=== PATIENT | female | born 2000 | race Caucasian/White ===

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

== ENCOUNTER 2022-07-25 21:58 | Emergency (ER) | payer BC, OTHER ==
[~2022-07-25] VITALS: Ht 162.6 cm; Wt 63.5 kg
[~2022-07-25 21:58] MED LIST changes: -GADOBUTROL 7.5 MMOL/7.5 ML (GADAVIST) VIAL IV ONE; +NITR-65 PO
--- NOTE | 2022-07-25 22:42 | ED GU-Female ---
General Chief Complaint: - Reproductive Stated Complaint: RIGHT SIDE BACK PAIN Source: patient History of Present Illness Date Seen by Provider: July 25, 2022 Time Seen by Provider: 22:25 Initial Comments PT ARRIVES VIA POV FROM HOME WITH MOTHER. PT STATES THAT IMMEDIATELY PRIOR TO ARRIVAL--20 MINUTES OR LESS, SHE BEGAN HAVING LEFT FLANK PAIN, THAT THEN MOVED OVER TO RIGHT FLANK SHE WAS WITH HER BOYFRIEND AT THE TIME SHE HAS NOT TAKEN ANYTHING FOR PAIN SHE HAS BEEN DRINKING ALCOHOL TONIGHT "A COUPLE OF SHOTS" SHE STATES THE SAME THING HAPPENED YESTERDAY, AND WENT AWAY. SHE CALLED DR. DIOP'S OFFICE YESTERDAY, AND HAS AN APPOINTMENT WEDNESDAY FOR THIS PROBLEM. SHE SAW DR. DIOP ON 07/14/22 FOR URINARY FREQUENCY, PAIN ON URINATION AND PAINFUL INTERCOURSE. THOSE SYMPTOMS HAD BEEN ONGOING FOR 2-3 WEEKS PRIOR TO THAT VISIT. SHE WAS DX WITH CHLAMYDIA ON A URINE TEST, AND WAS TREATED WITH DOXYCYCLINE X 7 DAYS. SHE HAS COMPLETED TREATMENT. SHE STATES THOSE SYMPTOMS ARE NOT BETTER. SHE HAS CONTINUED TO HAVE INTERCOURSE. SHE REPORTS THAT HER BOYFRIEND TESTED NEGATIVE AND HE WAS NOT TREATED. SHE HAS NOT HAD VAGINAL DISCHARGE SHE STARTED HER PERIOD 07/21/22 AND IT CONTINUES TODAY. NORMAL. ON OCP'S SHE VOIDED JUST PRIOR TO ARRIVAL. NO FEVER NO NAUSEA/VOMITING OR DIARRHEA TODAY SHE DID HAVE NAUSEA 2 DAYS AGO, BUT NONE SINCE. HAS BEEN CONSTIPATED FOR THE LAST 2 WEEKS. PCP: DR. DIOP Allergies and Home Medications Allergies Coded Allergies: No Known Drug Allergies (Unverified , 03/09/17) Patient Home Medication List Home Medication List Reviewed: Yes Doxycycline Hyclate (Doxycycline Hyclate) 100 Mg Tablet, 100 MG PO BID Prescribed by: ELISA BLOOM on 07/26/22 0015 Metronidazole (Metronidazole) 500 Mg Tablet, 500 MG PO QID Prescribed by: ELISA BLOOM on 07/26/22 001 Nitrofurantoin Monohyd/M-Cryst (Macrobid 100 mg Capsule) 100 Mg Capsule, 100 MG PO BID Prescribed by: ELISA BLOOM on 10/26/17 8656 Review of Systems Review of Systems Constitutional: no symptoms reported Respiratory: no symptoms reported Cardiovascular: no symptoms reported Gastrointestinal: see HPI Genitourinary: see HPI Musculoskeletal: see HPI Skin: no symptoms reported Psychiatric/Neurological: Other (VERY DRAMATIC, CRYING, ANXIOUS) Endocrine: No Symptoms Reported Hematologic/Lymphatic: No Symptoms Reported Past Sfbffsz-Nwllvo-Tyzvtj Hx Patient Social History Tobacco Use?: No Use of E-Cig and/or Vaping dev: No Substance use?: No Alcohol Use?: Yes Alcohol type: Hard Liquor Alcohol Frequency: Couple times a week Pt feels they are or have been: No Immunizations Up To Date Tetanus Booster (TDap): Less than 5yrs PED Vaccines UTD: Yes Influenza Vaccine Up-to-Date: No; Not Current First/Initial COVID19 Vaccinat: N/A Seasonal Allergies Seasonal Allergies: Yes Past Medical History Surgeries: No Respiratory: Yes (MILD EXERCISE INDUCED ASTHMA/DYSPNEA--USES INHALER PRN) Cardiac: No Neurological: No Reproductive Disorders: No Sexually Transmitted Disease: Yes (DX CHLAMYDIA 07/14/22--[place] DOXYCYCLINE) Genitourinary: No Gastrointestinal: No Musculoskeletal: No Endocrine: No HEENT: No Cancer: No Psychosocial: No Integumentary: No Blood Disorders: No Physical Exam Vital Signs Vital Signs - First Documented 07/25/22 22:15 Temp 36.5 Pulse 80 Resp 16 B/P (MAP) 124/78 (93) Pulse Ox 95 O2 Delivery Room Air Capillary Refill : Height, Weight, BMI Height: 5'4.00" Weight: 130lbs. oz. 58.258011bu; 21.09 BMI Method:Stated General Appearance: other (VERY DRAMATIC, CRYING. PT IS BAREFOOT, WEARING SWEAT PANTS AND SPORTS BRA. + ODOR OF ETOH) HEENT: PERRL/EOMI Cardiovascular: regular rate, rhythm Respiratory: normal breath sounds, no respiratory distress, no accessory muscle use Gastrointestinal: normal bowel sounds, soft, no organomegaly, no pulsatile mass; No distended, No guarding, No rebound; tenderness (SUPRAPUBIC TENDERNESS. NO FLANK TENDERNESS); No hernia, No mass Pelvic: normal external exam; No discharge, No lesions, No mass; tender w/ cervical motion (MARKED CERVICAL MOTION TENDERNESS, UTERINE FUNDUS TENDERNESS AND BILATERAL ADNEXAL TENDERNESS. AND ALSO HAS MARKED TENDERNESS WITH OBTAINING CERVICAL SWABS FOR CULTURES. ), tender adnexa, tender uterus, other (THERE IS SCANT AMOUNT OF BROWN DISCHARGE AT CERVIX. CERVIX IS FRIABLE. ) Back: no CVA tenderness, no vertebral tenderness Extremities: normal inspection Neurologic/Psychiatric: client support consultant II-XII nml as tested, no motor/sensory deficits, alert, oriented x 3 Skin: normal color, warm/dry Progress/Results/Core Measures Suspected Sepsis SIRS Temperature: Pulse: Respiratory Rate: Laboratory Tests 07/25/22 23:30: White Blood Count 5.9 Blood Pressure / Mean: Laboratory Tests 07/25/22 23:30: Creatinine 0.87, Platelet Count 300, Total Bilirubin 0.2 Results/Orders Lab Results Laboratory Tests Test 07/25/22 22:30 07/25/22 23:15 07/25/22 23:30 Range/Units Urine Color YELLOW Urine Clarity CLEAR Urine pH 5.5 5-9 Urine Specific [place] 1.020 1.016-1.022 Urine Protein NEGATIVE NEGATIVE Urine Glucose (UA) NEGATIVE NEGATIVE Urine Ketones NEGATIVE NEGATIVE Urine Nitrite NEGATIVE NEGATIVE Urine Bilirubin NEGATIVE NEGATIVE Urine Urobilinogen 0.2 < = 1.0 MG/DL Urine Leukocyte Esterase NEGATIVE NEGATIVE Urine RBC (Auto) 2+ H NEGATIVE Urine RBC 2-5 H /HPF Urine WBC NONE /HPF Urine Squamous Epithelial Cells 0-2 /HPF Urine Crystals PRESENT H /LPF Urine Amorphous Sediment RARE AGUSTÍN URATES H /LPF Urine Bacteria TRACE /HPF Urine Casts NONE /LPF Urine Mucus NEGATIVE /LPF Urine Culture Indicated NO Urine Opiates Screen NEGATIVE NEGATIVE Urine Oxycodone Screen NEGATIVE NEGATIVE Urine Methadone Screen NEGATIVE NEGATIVE Urine Propoxyphene Screen NEGATIVE NEGATIVE Urine Barbiturates Screen NEGATIVE NEGATIVE Ur Tricyclic Antidepressants Screen NEGATIVE NEGATIVE Urine Phencyclidine Screen NEGATIVE NEGATIVE Urine Amphetamines Screen NEGATIVE NEGATIVE Urine Methamphetamines Screen NEGATIVE NEGATIVE Urine Benzodiazepines Screen NEGATIVE NEGATIVE Urine Cocaine Screen NEGATIVE NEGATIVE Urine Cannabinoids Screen NEGATIVE NEGATIVE White Blood Count 5.9 4.3-11.0 10^3/uL Red Blood Count 4.27 3.80-5.11 10^6/uL Hemoglobin 11.9 11.5-16.0 g/dL Hematocrit 37 35-52 % Mean Corpuscular Volume 86 80-99 fL Mean Corpuscular Hemoglobin 28 25-34 pg Mean Corpuscular Hemoglobin Concent 33 32-36 g/dL Red Cell Distribution Width 15.5 H 10.0-14.5 % Platelet Count 300 130-400 10^3/uL Mean Platelet Volume 9.9 9.0-12.2 fL Immature Granulocyte % (Auto) 0 % Neutrophils (%) (Auto) 39 L 42-75 % Lymphocytes (%) (Auto) 50 H 12-44 % Monocytes (%) (Auto) 9 0-12 % Eosinophils (%) (Auto) 2 0-10 % Basophils (%) (Auto) 1 0-10 % Neutrophils # (Auto) 2.3 1.8-7.8 10^3/uL Lymphocytes # (Auto) 2.9 1.0-4.0 10^3/uL Monocytes # (Auto) 0.5 0.0-1.0 10^3/uL Eosinophils # (Auto) 0.1 0.0-0.3 10^3/uL Basophils # (Auto) 0.0 0.0-0.1 10^3/uL Immature Granulocyte # (Auto) 0.0 0.0-0.1 10^3/uL Sodium Level 143 135-145 MMOL/L Potassium Level 3.9 3.6-5.0 MMOL/L Chloride Level 110 H 98-107 MMOL/L Carbon Dioxide Level 19 L 21-32 MMOL/L Anion Gap 14 5-14 MMOL/L Blood Urea Nitrogen 14 7-18 MG/DL Creatinine 0.87 0.60-1.30 MG/DL Estimat Glomerular Filtration Rate 98 BUN/Creatinine Ratio 16 Glucose Level 92 70-105 MG/DL Calcium Level 9.0 8.5-10.1 MG/DL Corrected Calcium 8.8 8.5-10.1 MG/DL Total Bilirubin 0.2 0.1-1.0 MG/DL Aspartate Amino Transf (AST/SGOT) 19 5-34 U/L Alanine Aminotransferase (ALT/SGPT) 19 0-55 U/L Alkaline Phosphatase 68 40-136 U/L Total Protein 7.5 6.4-8.2 GM/DL Albumin 4.3 3.2-4.5 GM/DL My Orders Orders - ELISA BLOOM DO Urine Bedside (07/25/22 22:24) Ua Culture If Indicated (07/25/22 22:24) Drug Screen Stat (Urine) (07/25/22 22:24) Neis Kb Dna Urine Test (07/25/22 22:34) Chlamydia Trachomatis Urine (07/25/22 22:34) Ed Iv/Invasive Line Start (07/25/22 23:06) Cbc With Automated Diff (07/25/22 23:06) Comprehensive Metabolic Panel (07/25/22 23:06) Ct Abd/Pelv W (Appendicitis) (07/25/22 23:06) Ketorolac Injection (Toradol Injection) (07/25/22 23:15) Neisseria Gonorrhea Swab (07/25/22 23:06) Chlam Dna Probe (07/25/22 23:06) Genital Culture (07/25/22 23:06) Wet Prep (07/25/22 23:06) Mc Prep (07/25/22 23:06) Azithromycin Tablet (Zithromax Tablet) (07/25/22 23:15) Medications Given in ED Current Medications Medications Dose Ordered Sig/Daisy Route Start Time Stop Time Status Last Admin Dose Admin Azithromycin 1,000 mg ONCE ONCE PO 07/25/22 23:15 07/25/22 23:16 DC 07/25/22 23:52 1,000 MG Ketorolac Tromethamine 30 mg ONCE ONCE IVP 07/25/22 23:15 07/25/22 23:16 DC 07/25/22 23:52 30 MG Vital Signs/I&O 07/25/22 07/26/22 22:15 00:28 Temp 36.5 36.6 Pulse 80 74 Resp 16 16 B/P (MAP) 124/78 (93) 123/78 Pulse Ox 95 98 O2 Delivery Room Air Room Air Capillary Refill : Progress Note : Progress Note SHORTLY AFTER ARRIVAL, MOM HAS LEFT THE ROOM AND BOYFRIEND IS IN ROOM LAYING ON THE ER CART WITH HER. PT NOW STATES HER PAIN IS ALL IN HER LOWER ABDOMEN / SUPRAPUBIC AREA. GIVEN: -IV FLUIDS -TORADOL -ROCEPHIN -ZITHROMAX PAIN IS IMPROVED AT DISMISSAL DISCUSSED TEST RESULTS AND PENDING CULTURES, MEDICATIONS, SYMPTOMATIC TREATMENT, IMPORTANCE OF SEXUAL ABSTINENCE, IMPORTANCE OF PARTNER BEING TREATED ALSO, IMPORTANCE OF FOLLOW UP, AND RETURN PRECAUTIONS Diagnostic Imaging Comments CT ABDOMEN/PELVIS--PER [facility] VIA FAX AT 0008 -NO ACUTE PROCESS -NORMAL APPENDIX Reviewed: Reviewed by Me Departure Impression Primary Impression: PID (pelvic inflammatory disease) Additional Impression: RECENT DX OF CHLAMYDIA Disposition: HOME, SELF-CARE Condition: Stable Departure-Patient Inst. Decision time for Depature: 00:13 Referrals: ELISA DIOP MD (PCP/Family) Primary Care Physician Patient Instructions: Pelvic Inflammatory Disease ED, STD Prevention Add. Discharge Instructions: TYLENOL AND MOTRIN NEEDED FOR PAIN LOTS OF CLEAR LIQUIDS NO INTERCOURSE OF ANY KIND UNTIL YOU AND YOUR PARTNER ARE BOTH TREATED AND BOTH CLEARED BY DR. FOLLOW UP WITH YOUR DR ON WEDNESDAY SCHEDULED. All discharge instructions reviewed with patient and/or family. Voiced understanding. Scripts Metronidazole (Metronidazole) 500 Mg Tablet 500 MG PO QID, #40 TAB Prov: ELISA BLOOM DO 07/26/22 Doxycycline Hyclate (Doxycycline Hyclate) 100 Mg Tablet 100 MG PO BID, #20 TAB 0 Refills Prov: ELISA BLOOM DO 07/26/22 ELISA BLOOM DO July 25, 2022 22:42
[2022-07-25 22:45] LABS: BILIRUBIN,URINE NEGATIVE (NEGATIVE); CLARITY,URINE CLEAR; COLOR,URINE YELLOW; GLUCOSE, URINE (UA) NEGATIVE (NEGATIVE); KETONES,URINE NEGATIVE (NEGATIVE); LEUKOCYTE ESTERASE ,URINE NEGATIVE (NEGATIVE); NITRITE,URINE NEGATIVE (NEGATIVE); PH,URINE 5.5 (5-9); PROTEIN,URINE NEGATIVE (NEGATIVE)
[2022-07-25 22:54] LABS: AMORPHOUS SEDIMENT,UR RARE AMOR URATES /LPF; BACTERIA,URINE TRACE /HPF; SQUAMOUS EPITHELIAL CELL,UR 0-2 /HPF
[2022-07-25 23:00] LABS: AMPHETAMINE SCREEN, URINE NEGATIVE (NEGATIVE); BARBITURATE SCREEN URINE NEGATIVE (NEGATIVE); BENZODIAZEPINES SCREEN URINE NEGATIVE (NEGATIVE); CANNABINOID SCREEN, URINE NEGATIVE (NEGATIVE); COCAINE SCREEN URINE NEGATIVE (NEGATIVE); METHADONE STAT NEGATIVE (NEGATIVE); OPIATE SCREEN URINE NEGATIVE (NEGATIVE); OXYCODONE STAT NEGATIVE (NEGATIVE); PROPOXYPHENE STAT NEGATIVE (NEGATIVE); TRICYCLIC ANTIDEPRESSANTS SCRE NEGATIVE (NEGATIVE)
[2022-07-25] MEDS ORDERED: KETOROLAC 30 MG/ML VIAL IVP ONE (23:15)
[2022-07-25] MEDS ORDERED: AZITHROMYCIN 250 MG TAB (ZITHROMAX) PO ONE (23:15)
[2022-07-25 23:42] LABS: BASOPHILS % (AUTO) 1 % (0-10); EOSINOPHILS # (AUTO) 0.1 10^3/uL (0.0-0.3); EOSINOPHILS % (AUTO) 2 % (0-10); HEMATOCRIT 37 % (35-52); HEMOGLOBIN 11.9 g/dL (11.5-16.0); LYMPHOCYTES # (AUTO) 2.9 10^3/uL (1.0-4.0); LYMPHOCYTES % (AUTO) 50 % (12-44); MEAN CORPUSCULAR HEMOGLOBIN 28 pg (25-34); MEAN CORPUSCULAR HGB CONC 33 g/dL (32-36); MEAN CORPUSCULAR VOLUME 86 fL (80-99); MEAN PLATELET VOLUME 9.9 fL (9.0-12.2); MONOCYTES # (AUTO) 0.5 10^3/uL (0.0-1.0); MONOCYTES % (AUTO) 9 % (0-12); NEUTROPHILS # (AUTO) 2.3 10^3/uL (1.8-7.8); NEUTROPHILS % (AUTO) 39 % (42-75); PLATELET COUNT 300 10^3/uL (130-400); WHITE BLOOD COUNT 5.9 10^3/uL (4.3-11.0)
[2022-07-25 23:59] LABS: ALBUMIN 4.3 GM/DL (3.2-4.5); POTASSIUM 3.9 MMOL/L (3.6-5.0)
[2022-07-26 00:02] LABS: TOTAL PROTEIN 7.5 GM/DL (6.4-8.2)
[2022-07-26 00:04] LABS: BILIRUBIN,TOTAL 0.2 MG/DL (0.1-1.0)
[2022-07-26 00:05] LABS: CREATININE SERUM 0.87 MG/DL (0.60-1.30)
[2022-07-26] MEDS ORDERED: METR-145 PO (00:15)
[2022-07-26] MEDS ORDERED: DOXY100T2 PO (00:15)
[2022-07-26 00:28] VITALS: BP 123/78
--- NOTE | 2022-07-26 06:11 | Diagnostic Imaging Report ---
EXAMINATION: CT abdomen and pelvis with intravenous contrast. TECHNIQUE: Multiple contiguous axial images were obtained through the abdomen and pelvis after the uneventful administration of intravenous contrast. All CT scans use one or more of the following dose optimizing techniques: automated exposure control, MA and/or KvP adjustment based on patient size and exam type or iterative reconstruction. HISTORY: Right lower quadrant pain COMPARISON: 10/26/2017 FINDINGS: Limited views of the lower thorax are unremarkable. The liver is normal without focal lesion. There is no biliary ductal dilation. Gallbladder is normal. Pancreas is normal. Spleen is normal. Adrenal glands are normal. The kidneys are normal. There is no hydronephrosis. Urinary bladder is normal. Bowel is normal in caliber without obstruction or inflammation. The appendix is normal. No free fluid or air. No abdominal or pelvic lymphadenopathy. Aorta is normal in caliber without aneurysm. There are no suspicious osseus lesions. IMPRESSION: 1. No acute abnormality in the abdomen or pelvis, normal appendix. There is no significant disagreement with the preliminary report. Dictated by: Dictated on workstation # [id number]
== END 2022-07-26 00:28 | disposition home or self-care (01) ==
LOC: EDUNIT# 21:58 → ER 22:02
DX: A56.11 Chlamydial female pelvic inflammatory disease (principal); Z28.310 Unvaccinated for COVID-19
CPT/HCPCS: 36415; 74177; 80053; 80306; 81000; 84703; 85025; 87070; 87205; 87210; 87220; 87491; 87591